=== PATIENT | female | born 1960 | race Caucasian/White ===

== ENCOUNTER 2019-11-21 13:18 | Emergency (ER) | payer OTHER ==
[~2019-11-21] VITALS: Ht 167.6 cm; Wt 104.3 kg
[2019-11-21 13:31] VITALS: BP_SYST 162
--- NOTE | 2019-11-21 13:35 | NUR ---
Patient to ER bed 8 to gown for evaluation. Side rails up. Report given to KRISTINE CAMPOS.
--- NOTE | 2019-11-21 13:36 | NUR ---
ER Dedra Cook at bedside examining patient.
--- NOTE | 2019-11-21 13:38 | NUR ---
Pt AAOx4 presents to ED via BLS from work c/o 06/27 pain to R shoulder s/p trip and fall prior to arrival. Denies KO. Pt tripped on pants and attempted to hold her self up by holding on to a tall drawer with her R arm. Pt was unable to stop her self from falling and R shoulder was hyperextended. No deformities noted. No other injuries/complaints per pt/noted. Will continue to monitor.
[2019-11-21] MEDS ORDERED: KETOROLAC TROMETHAMINE 60 MG/2 ML VIAL IM ONE (13:45)
--- NOTE | 2019-11-21 13:49 | NUR ---
Pt ambulated to radiology in stable condtion
[2019-11-21] MEDS ORDERED: ONDANSETRON 4 MG ODT TAB PO ONE (14:45)
[2019-11-21] MEDS ORDERED: MORPHINE SULFATE 10 MG/ML VIAL IM ONE (14:45)
--- NOTE | 2019-11-21 14:53 | NUR ---
Medication administered. Pt tolerated well. No adverse reactions noted.
[2019-11-21 15:33] VITALS: BP_SYST 138
--- NOTE | 2019-11-21 15:33 | NUR ---
Patient given written and verbal discharge instructions and verbalizes understanding. ER MD Cano discussed with patient the results and treatment provided. Patient in stable condition. ID arm band removed. Rx of Motrin, [place] given. Patient educated on pain management and to follow up with PMD. Pain Scale 0. Opportunity for questions provided and answered. Medication side effect fact sheet provided.
== END 2019-11-21 15:33 | disposition home or self-care (01) ==
LOC: SED 13:18
DX: S42.291A Other displaced fracture of upper end of right humerus, initial encounter for closed fracture (principal); W18.39XA Other fall on same level, initial encounter; Y93.89 Activity, other specified; Y92.89 Other specified places as the place of occurrence of the external cause; Y99.8 Other external cause status
CPT/HCPCS: 73030; 96372; 99283; J1885; J2270; Q0162